=== PATIENT | male | born 1955 | race Caucasian/White ===

== ENCOUNTER → 2018-12-19 | Outpatient (CLI) | payer OTHER | LOC: COL.RAD 07:42 | DX: K44.9 Diaphragmatic hernia without obstruction or gangrene (principal) ==

== ENCOUNTER → 2020-11-26 | Outpatient (CLI) | payer OTHER | LOC: COL.CARD 11:11 | DX: R00.2 Palpitations (principal) ==

== ENCOUNTER → 2021-01-21 | Outpatient (CLI) | payer OTHER ==
[~2021-01-21] MED LIST: ULTRAM 50MG TAB50 MG PO; ZOCOR 10MG10 MG PO
== END ==
LOC: COL.RAD 07:43
DX: K80.20 Calculus of gallbladder without cholecystitis without obstruction (principal); K57.30 Diverticulosis of large intestine without perforation or abscess without bleeding; K44.9 Diaphragmatic hernia without obstruction or gangrene; N20.0 Calculus of kidney; N40.0 Benign prostatic hyperplasia without lower urinary tract symptoms
CPT/HCPCS: Q9967

== ENCOUNTER 2021-04-22 05:40 | Day surgery (SDC) | payer OTHER ==
[2021-04-22] VITALS (9 sets, daily range): BP systolic 92–132; BP diastolic 51–74; PULSE 59–83; TEMP 98.3–98.8
[~2021-04-22] VITALS: Ht 177.8 cm; Wt 93.6 kg
[2021-04-22] MEDS ORDERED: ZOCOR 10MG10 MG PO (06:10)
--- NOTE | 2021-04-22 09:50 | NUR ---
Patient returns to room 7 per cart from PACU accompanied by Caitlyn CERON. Arouses to verbal stimuli. Laparoscopic incisional sites on abdomen x4 intact with wound edges well approximated. IV fluids infusing left hand and site is free of redness. Siderails up x2 and spouse in room. Allowed to rest. Denies need for pain medication or any nausea.
--- NOTE | 2021-04-22 10:05 | NUR ---
Arouses to verbal stimuli. Taking ice chips. Room air sats 95%.
[2021-04-22] MEDS ORDERED: ULTRAM 50MG TAB50 MG PO (10:11)
--- NOTE | 2021-04-22 10:20 | NUR ---
Continues to rest and offers no complaints.
--- NOTE | 2021-04-22 10:35 | NUR ---
Eating jello and toast. Continues to rest without complaints.
--- NOTE | 2021-04-22 10:50 | NUR ---
Oxygen sats drop down to 89-91% when sleeping. Placed on oxygen at 2L. Will continue to monitor.
--- NOTE | 2021-04-22 11:20 | NUR ---
Eating second slice of toast and more jello. Remains on oxygen at 2L per nasal cannula.
--- NOTE | 2021-04-22 11:50 | NUR ---
States that he is having more incisional pain.
--- NOTE | 2021-04-22 12:35 | NUR ---
Was medicated with Ultram 50mg po at 1200. Oxygen removed and sats 96%. Assisted up to the bathroom and gait steady. States that he feels "loopy." Able to void and returns to room. IV was converted to INT. States he is ready for discharge to home.
--- NOTE | 2021-04-22 12:45 | NUR ---
INT needle discontinued and site is free of redness. Patient is able to dress self.
--- NOTE | 2021-04-22 13:00 | NUR ---
Dismissal instructions given and patient and spouse both verbalize understanding of these. Assisted into wheelchair and taken to the front door per wheelchair and dismissed to home driven by spouse with dismissal instructions in hand.
== END 2021-04-22 13:00 | disposition home or self-care (01) ==
LOC: SDCO 05:40
DX: K80.10 Calculus of gallbladder with chronic cholecystitis without obstruction (principal); K21.9 Gastro-esophageal reflux disease without esophagitis; E78.5 Hyperlipidemia, unspecified; Z79.899 Other long term (current) drug therapy; Z80.3 Family history of malignant neoplasm of breast; Z80.1 Family history of malignant neoplasm of trachea, bronchus and lung; Z82.3 Family history of stroke
CPT/HCPCS: J0690; J1100; J1170; J2405; J2704; J3010; J7120

== ENCOUNTER 2021-09-24 13:31 | Day surgery (SDC) | payer OTHER ==
[~2021-09-24] VITALS: Ht 177.8 cm; Wt 93.4 kg
[2021-09-24] VITALS (7 sets, daily range): BP systolic 102–128; BP diastolic 58–85; PULSE 78–100; TEMP 97.7–98.1
[2021-09-24] MEDS ORDERED: FLOMAX 0.40.4 MG/CAP PO (14:32)
[2021-09-24] MEDS ORDERED: PROSCAR 5MG5 MG PO (14:38)
[2021-09-24] MEDS ORDERED: VOLTAREN 75 DR75 MG PO (14:39)
[2021-09-24] MEDS ORDERED: NEXIUM 24HR20 M1 PO (14:40)
--- NOTE | 2021-09-24 19:40 | NUR ---
Pt. arrived to the floor at 1925 from PACU. Pt. is A&OX3, assessment complete. INT to rt. hand patent. Pt. denies pain. Mckeon catheter to DD, with CBI, urine is pink at this time. Pt. denies further needs, call light within reach.
[2021-09-25 04:17] VITALS: BP 96/61; PULSE 79; TEMP 98.8
[2021-09-25 08:52] VITALS: BP 99/61; PULSE 72; TEMP 98.3
--- NOTE | 2021-09-25 08:52 | NUR ---
Patient assisted up to the chair. He is awake & alert. O2 removed. 94 percent on room air. Tension removed from pryor, stat lock on. Pryor to DD with light pink tinged output. Int. tolerated breakfast. Will monitor.
[2021-09-25 11:13] VITALS: BP 104/57; PULSE 82; TEMP 98.4
--- NOTE | 2021-09-25 14:59 | NUR ---
Patient has done well post prime & pull. He has voided x5. Will await forhim to void one more time.
[2021-09-25 16:11] VITALS: BP 104/60; PULSE 80; TEMP 98.7
--- NOTE | 2021-09-25 16:33 | NUR ---
Patient has voided x7. I have been in contact with Dr. Rios. Ko garrett scanned 345ml. Patient medication with AZO, tylenol, & flomax. Will continue to watch patient a few more hours to see if he can empty bladder more completely.
--- NOTE | 2021-09-25 18:50 | NUR ---
Patient voided 2 more times. Bladder scanned at 187. notifed & orders for discharge obtained. Patient ready to get home. Int. We reviewed all discharge education & medication list. Follow up appt already scheduled. Patient denies questions or concerns. Patietn ambulated out with all belongigns
== END 2021-09-25 19:10 | disposition home or self-care (01) ==
LOC: SDCO 13:31 → SURG 19:25 → SDCO 09-25 19:10
DX: N40.1 Benign prostatic hyperplasia with lower urinary tract symptoms (principal); N13.8 Other obstructive and reflux uropathy; R33.9 Retention of urine, unspecified; N39.490 Overflow incontinence; R39.14 Feeling of incomplete bladder emptying; R35.0 Frequency of micturition; R35.1 Nocturia; E78.5 Hyperlipidemia, unspecified; E78.00 Pure hypercholesterolemia, unspecified; Z79.899 Other long term (current) drug therapy; K21.9 Gastro-esophageal reflux disease without esophagitis
CPT/HCPCS: OP; J0690; J2175; J2405; J2704; J3010; J7120

== ENCOUNTER 2021-09-26 11:31 | Observation (INO) | payer OTHER ==
[2021-09-26] VITALS (104 sets, daily range): BP systolic 102–118; BP diastolic 69–79; PULSE 84–92; TEMP 98–99.1; O2SAT 80–98
[~2021-09-26] VITALS: Ht 177.8 cm; Wt 94.9 kg
[~2021-09-26 11:31] MED LIST changes: +FLOMAX 0.40.4 MG/CAP PO; +NEXIUM 24HR20 M1 PO; +PROSCAR 5MG5 MG PO; +VOLTAREN 75 DR75 MG PO
[2021-09-26 11:55] LABS: BASO % 0.3 % (0.0-2.0); EOS # 0.3 K/mm3 (0.0-0.7); EOS % 2.5 % (0-4.0); GRAN # 9.6 K/mm3 (1.4-6.5); GRAN % 78.1 % (42.2-75.2); HEMATOCRIT 40.2 % (42.0-52.0); HEMOGLOBIN 13.9 g/dl (13.5-18.0); LYMPH # 1.4 K/mm3 (1.2-3.4); LYMPH % 11.5 % (20.0-51.0); MEAN CELL VOLUME 87 fl (80.0-100.0); MEAN CORPUSCULAR HEMOGLOBIN 30 pg (27.0-31.0); MEAN CORPUSCULAR HGB CONC 35 g/dl (33.0-37.0); MEAN PLATELET VOLUME 10.3 fl (7.4-10.4); MONO # 0.9 K/mm3 (0.1-0.6); MONO % 7.2 % (1.7-9.3); PLATELET COUNT 178 K/mm3 (130-400); RED BLOOD COUNT 4.63 M/mm3 (4.20-5.60); REDCELL DISTRIBUTION WIDTH-CV 12.4 % (11.5-14.5)
[2021-09-26 12:01] LABS: INR 1.1 (0.8-3.0); PROTHROMBIN TIME 12.6 SECONDS (9.7-12.8)
[2021-09-26 12:04] LABS: PARTIAL THROMBOPLASTIN TIME 28.9 SECONDS (26.0-37.0)
[2021-09-26 12:31] LABS: ALANINE AMINOTRANSFERASE 13 U/L (0-55); ALBUMIN 3.2 gm/dL (3.4-4.8); ALKALINE PHOSPHATASE 60 U/L (40-150); ANION GAP 7 mmol/L (7-16); AST,SGOT 20 U/L (5-34); BILIRUBIN,TOTAL 0.8 mg/dL (0.2-1.2); BLOOD UREA NITROGEN 13 mg/dL (8-26); CALCIUM 9.4 mg/dL (8.4-10.2); CARBON DIOXIDE 23 mmol/L (23-31); CHLORIDE 108 mmol/L (98-107); CREATININE, serum 1.11 mg/dL (0.72-1.25); GLUCOSE 120 mg/dL (70-99); POTASSIUM 3.8 mmol/L (3.5-4.5); SODIUM 138 mmol/L (136-145); TOTAL PROTEIN 6.6 gm/dL (6.2-8.1)
[2021-09-26 12:37] LABS: TROPONIN-I < 0.010 ng/mL (0.00-0.033)
--- NOTE | 2021-09-26 14:10 | NUR ---
PT ARRIVED FROM ER. PT CONVERTED TO SR PRIOR TO TRANSFER. PT ON AMIO AND HEPARIN DRIP. PT TRANSRERED TO BED. PT PLACED ON MONITORS. PT IS SR IN THE 80'S. VSS. PT DENIES CP. PT ORIENTED TO ROOM AND FLOOR. ADMISSION COMPLETED. 1430-EKG DONE AND SHOWS NSR. 1445- CALLED AND NOTIFIED OF ARRIVAL AND PT IN SR.
--- NOTE | 2021-09-26 15:23 | NUR ---
BEDSIDE WITH PT.
--- NOTE | 2021-09-26 15:54 | NUR ---
CONSULT CALLED TO
--- NOTE | 2021-09-26 17:01 | NUR ---
BEDSIDE TO EVALUATE PT. ORDER TO DC AMIO DRIP.
--- NOTE | 2021-09-26 21:37 | NUR ---
PT SITTING UP IN BED. DENIES PAIN, REPORTS NO CONCERNS. DISCUSSED VOIDING, POST TURP HAS SOME URGENCY AND "MAKES A MESS". HELPED PT TO CHANGE GOWN, LINENS, AND PROVIDED NEW SET UP TO HELP REACHING/USING URINAL EASIER. VSS. WILL CONTINUE TO MONITOR.
[2021-09-27] VITALS: BP 105/59; PULSE 80; TEMP 98.6
[2021-09-27 04:00] VITALS: BP 102/65; PULSE 78; TEMP 98.7
--- NOTE | 2021-09-27 07:22 | NUR ---
RECEIVED BEDSIDE SHIFT REPORT FROM OSMANY SEBASTIAN. PATIENT IS STABLE ON HEPARIN GTT CURRENTLY. ORDERS TO SWITCH TO PO ASPIRIN TODAY. VITAL SIGNS STABLE FOR PATIENT. CAN STAND INDEPENDENTLY TO USE URINAL PER REPORT. PERIPHERAL LINES STILL IN PLACE. PATIENT RESTING IN BED WITH EYES OPEN.
[2021-09-27 07:43] LABS: CALCIUM 8.5 mg/dL (8.4-10.2); CREATININE, serum 0.9 mg/dL (0.72-1.25); POTASSIUM 3.8 mmol/L (3.5-4.5)
[2021-09-27 08:00] VITALS: BP 112/69; PULSE 75; TEMP 98.9
[2021-09-27 08:03] LABS: BASO % 0.4 % (0.0-2.0); EOS # 0.4 K/mm3 (0.0-0.7); EOS % 5.8 % (0-4.0); GRAN # 5.5 K/mm3 (1.4-6.5); GRAN % 72.1 % (42.2-75.2); LYMPH # 1.1 K/mm3 (1.2-3.4); LYMPH % 14.2 % (20.0-51.0); MEAN CELL VOLUME 87 fl (80.0-100.0); MEAN CORPUSCULAR HGB CONC 35 g/dl (33.0-37.0); MEAN PLATELET VOLUME 10.3 fl (7.4-10.4); MONO # 0.5 K/mm3 (0.1-0.6); MONO % 7.1 % (1.7-9.3); PLATELET COUNT 168 K/mm3 (130-400); RED BLOOD COUNT 3.94 M/mm3 (4.20-5.60); REDCELL DISTRIBUTION WIDTH-CV 12.4 % (11.5-14.5)
[2021-09-27 08:07] LABS: HEMATOCRIT 34.4 % (42.0-52.0); HEMOGLOBIN 11.9 g/dl (13.5-18.0); MEAN CORPUSCULAR HEMOGLOBIN 30 pg (27.0-31.0)
[2021-09-27] MEDS ORDERED: AMOXICILLIN 8751 TAB PO (11:32)
[2021-09-27] MEDS ORDERED: CORDARONE200 MG/TAB PO (11:33)
[2021-09-27] MEDS ORDERED: ASPIRIN E.C. 8181 MG PO (11:34)
== END 2021-09-27 13:53 | disposition home or self-care (01) ==
LOC: COL.ER 11:31 → ICU 13:41
PROVIDERS: Family Medicine; ADMIT Student in an Organized Health Care Education/Training Program
DX: I48.92 Unspecified atrial flutter (principal); Z20.822 Contact with and (suspected) exposure to COVID-19; Z79.899 Other long term (current) drug therapy
CPT/HCPCS: G0378; J0282; J1644; J7030; J7060